=== PATIENT | female | born 1960 | race Caucasian/White ===

== ENCOUNTER 2016-06-20 21:06 | Emergency (ER) | payer OTHER ==
[2016-06-20 22:00] VITALS: BP 119/81; PULSE 65; RESP 18; TEMP 97.2; O2SAT 95
[2016-06-20 22:18] LABS: COLOR YELLOW; LEUKOCYTE ESTERASE,URINE NEGATIVE (NEGATIVE); NITRITE,URINE NEGATIVE (NEGATIVE); PH,URINE 5.5 (5.0-7.5)
[2016-06-20 22:32] LABS: MUCUS 2+ /lpf (NONE-1+); RBC,URINE 50-182 /hpf (0-3)
--- NOTE | 2016-06-20 22:38 | UCPHY ---
H & P Time Seen by Provider: 06/20/16 22:18 Patient Type: Established HPI/ROS: CHIEF COMPLAINT: Brownish urine, suprapubic pain HISTORY OF PRESENT ILLNESS: This is a 56-year-old female with a history of interstitial cystitis, which causes lower abdominal discomfort. She takes Celexa for this discomfort. She noticed that earlier today her urine was brown and has continued to be dark and brown throughout the day. She feels like she has been drinking plenty of fluid. She was quite active yesterday, but nothing out of the norm for her she reports. She denies any fevers or chills. No chest pain, shortness of breath, vomiting, diarrhea, lightheadedness or headache. Patient denies any dysuria, frequency, or urgency. She does report suprapubic and left lower adnexal discomfort. REVIEW OF SYSTEMS: Aside from elements discussed in the HPI, a comprehensive 10-point review of systems was reviewed and is negative. PAST MEDICAL HISTORY: Interstitial cystitis, epiglottitis. 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 VITAL SIGNS Reviewed by me. GENERAL: Well-developed, well-nourished, resting comfortably in no respiratory distress. HEENT: Benign exam. LUNGS: Clear to auscultation bilaterally, no wheezes, rhonchi or rales. CARDIAC: Regular rate and rhythm, no rubs, murmurs or gallops. ABDOMEN: Soft, mild left low/adnexal tenderness and mild suprapubic tenderness. BACK: No CVA tenderness. EXTREMITIES: No trauma. No edema. Range of motion is normal throughout. NEURO: Alert and oriented, grossly nonfocal. SKIN: Warm and dry, no rash. PSYCHIATRIC: Normal mentation, no agitation. Smoking Status: Never smoked Constitutional: Initial Vital Signs Temperature (C) 36.2 C 06/20/16 21:56 Heart Rate 65 06/20/16 21:56 Respiratory Rate 18 06/20/16 21:56 Blood Pressure 119/81 H 06/20/16 21:56 O2 Sat (%) 95 06/20/16 21:56 Allergies/Adverse Reactions: No Known Allergies Allergy (Verified 06/20/16 21:56) Home Medications: Medication Instructions Recorded Pantoprazole Sodium [Protonix] 06/20/16 celeCOXIB [CeleBREX] 02/05/17 Medical Decision Making ED Course/Re-evaluation: Urinalysis demonstrates specific gravity of 1.05, 3+ blood, 50-182 red cells, hyaline casts, and mucus. White cells are 1-3, leukocyte esterase is negative and nitrates are negative. I discussed these results with the patient. She reports that she has not had blood in her urine previously. CBC is largely unremarkable. Chemistries demonstrated creatinine of 1.0 and a BUN of 28. CPK is 108 I discussed possible causes of the laboratory findings with the patient. At this point I believe the most likely cause may be related to physical activity. Patient was offered further evaluation of her discomfort at an emergency department. She reports feeling comfortable to follow up with her primary care physician. She reports that her most recent urination demonstrated clearing urine. Differential Diagnosis: Differential diagnoses for the patient's symptom complex was considered including but not limited to occult trauma, kidney stone, hemorrhagic cystitis, dehydration, over exertion, microscopic hematuria. - Data Points Laboratory Results: Laboratory Results 06/20/16 22:50 06/20/16 22:50 06/20/16 06/20/16 22:50 21:00 WBC 8.00 10^3/uL (3.80-9.50) RBC 4.63 10^6/uL (4.18-5.33) Hgb 13.8 g/dL (12.6-16.3) Hct 41.3 % (38.0-47.0) MCV 89.2 fL (81.5-99.8) MCH 29.8 pg (27.9-34.1) MCHC 33.4 g/dL (32.4-36.7) RDW 12.6 % (11.5-15.2) Plt Count 261 10^3/uL (150-400) MPV 9.8 fL (8.7-11.7) Neut % (Auto) 41.6 % (39.3-74.2) Lymph % (Auto) 46.3 H % (15.0-45.0) Mccone % (Auto) 10.4 % (4.5-13.0) Eos % (Auto) 1.0 % (0.6-7.6) Baso % (Auto) 0.6 % (0.3-1.7) Nucleat RBC Rel Count 0.0 % (0.0-0.2) Absolute Neuts (auto) 3.33 10^3/uL (1.70-6.50) Absolute Lymphs (auto) 3.70 H 10^3/uL (1.00-3.00) Absolute Monos (auto) 0.83 H 10^3/uL (0.30-0.80) Absolute Eos (auto) 0.08 10^3/uL (0.03-0.40) Absolute Basos (auto) 0.05 10^3/uL (0.02-0.10) Absolute Nucleated RBC 0.00 10^3/uL (0-0.01) Immature Gran % 0.1 % (0.0-1.1) Immature Gran # 0.01 10^3/uL (0.00-0.10) Sodium 141 mEq/L (134-144) Potassium 3.8 mEq/L (3.5-5.2) Chloride 103 mEq/L (97-110) Carbon Dioxide 28 mEq/l (22-31) Anion Gap 10 mEq/L (8-16) BUN 28 H mg/dL (7-23) Creatinine 1.0 mg/dL (0.6-1.0) Estimated GFR 58 Glucose 76 mg/dL (70-100) Calcium 9.5 mg/dL (8.5-10.4) Creatine Kinase 108 IU/L (0-156) Urine Color YELLOW Urine Appearance CLOUDY Urine pH 5.5 (5.0-7.5) Ur Specific Pelican 1.025 (1.002-1.030) Urine Protein TRACE H (NEGATIVE) Urine Ketones TRACE H (NEGATIVE) Urine Blood 3+ H (NEGATIVE) Urine Nitrate NEGATIVE (NEGATIVE) Urine Bilirubin NEGATIVE (NEGATIVE) Urine Urobilinogen 0.2 EU (0.2-1.0) Ur Leukocyte Esterase NEGATIVE (NEGATIVE) Urine RBC 50-182 H /hpf (0-3) Urine WBC 1-3 /hpf (0-3) Ur Epithelial Cells TRACE /lpf (NONE-1+) Hyaline Casts 1-3 H /lpf (0-1) Urine Mucus 2+ H /lpf (NONE-1+) Urine Glucose NEGATIVE (NEGATIVE) Departure - Departure Disposition: Home, Routine, Self-Care Clinical Impression: Microscopic hematuria, Interstitial cystitis (chronic) without hematuria Condition: Good Instructions: Dehydration (ED), Hematuria (ED) Additional Instructions: Please continue to drink plenty of fluid. Observe your urine for clearing of the hematuria. If you develop worsening pain, fevers, vomiting, dysuria, frequency, or other concerns, please follow-up with your urologist or with your primary care physician. Referrals: Delbert Cazares MD [Primary Care Provider] - As per Instructions - PQRS PQRS Measurement: Not applicable
[2016-06-20] MEDS ORDERED: NS 1,000 ML IV ONE (22:43)
[2016-06-20 23:00] LABS: % IMMATURE GRANULYOCYTES 0.1 % (0.0-1.1); ABSOLUTE IMMATURE GRANULOCYTES 0.01 10^3/uL (0.00-0.10); ADD DIFF? NO; ADD MORPH? NO; ADD SCAN? NO; ATYPICAL LYMPHOCYTE FLAG 20 (0-99); FRAGMENT RBC FLAG 0 (0-99); HEMATOCRIT 41.3 % (38.0-47.0); HEMOGLOBIN 13.8 g/dL (12.6-16.3); LEFT SHIFT FLG 0 (0-99); LIPEMIA HEMOLYSIS FLAG 80 (0-99); MEAN CELL HEMOGLOBIN 29.8 pg (27.9-34.1); MEAN CELL HEMOGLOBIN CONCENTR. 33.4 g/dL (32.4-36.7); MEAN CELL VOLUME 89.2 fL (81.5-99.8); MEAN PLATELET VOLUME 9.8 fL (8.7-11.7); PLATELET CLUMPS FLAG 10 (0-99); PLATELET COUNT 261 10^3/uL (150-400); RED BLOOD CELL COUNT 4.63 10^6/uL (4.18-5.33); RED CELL DISTRIBUTION WIDTH 12.6 % (11.5-15.2)
[2016-06-20 23:12] LABS: CALCIUM 9.5 mg/dL (8.5-10.4); POTASSIUM 3.8 mEq/L (3.5-5.2)
== END 2016-06-20 23:53 | disposition home or self-care (01) ==
LOC: CED 21:06
DX: R31.29 Other microscopic hematuria (principal); N30.10 Interstitial cystitis (chronic) without hematuria
CPT/HCPCS: 80048-PO; 81003-PO; 81015-PO; 82550-PO; 85025-PO; 96360-PO; 99214-PO; G0463-PO

== ENCOUNTER → 2016-10-08 | Outpatient (CLI) | payer OTHER | LOC: BMCIMAGING 14:56 | PROVIDERS: ATTEND Internal Medicine | DX: Z12.31 Encounter for screening mammogram for malignant neoplasm of breast (principal) | CPT/HCPCS: G0202 ==

== ENCOUNTER → 2017-08-09 | Outpatient (CLI) | payer OTHER | LOC: FIMAGING 08:53 | PROVIDERS: ATTEND Internal Medicine | DX: Z13.820 Encounter for screening for osteoporosis (principal); Z78.0 Asymptomatic menopausal state ==